=== PATIENT | male | born 1960 | race Caucasian/White ===

== ENCOUNTER 2019-11-06 08:00 | Outpatient (CLI) | payer BC, SELFPAY ==
[2019-11-06 08:17] LABS: Basophils Percent Auto 1.2 % (0.0-1.0); Eosinophils Absolute Auto 0.29 K/mm3 (0.02-0.50); Eosinophils Percent Auto 3.6 % (1.0-6.0); Hematocrit 57.2 % (40.0-54.0); Hemoglobin 18.4 g/dL (14.0-18.0); Immature Granulocyte Absolute 0.11 K/mm3 (0.00-0.00); Immature Granulocyte Percent A 1.4 % (0.0-0.0); Lymphocytes Absolute Auto 2.31 K/mm3 (1.10-4.50); Lymphocytes Percent Auto 28.6 % (18.0-42.0); Mean Corpuscular HGB Conc 32.2 g/dL (32.0-36.0); Mean Corpuscular Hemoglobin 28.5 pg (27.0-31.0); Mean Corpuscular Volume 88.5 fL (78.0-102.0); Mean Platelet Volume 8.9 fl (8.7-11.0); Monocytes Absolute Auto 1.04 K/mm3 (0.10-0.90); Monocytes Percent Auto 12.9 % (2.0-11.0); Neutrophils Absolute Auto 4.2 K/mm3 (1.7-7.2); Neutrophils Percent Auto 52.3 % (50.0-70.0); Platelet Count Result 228 K/mm3 (150-420); Red Blood Count 6.46 M/mm3 (4.70-6.10); Red Cell Distribution Width 14.5 % (11.6-14.4); White Blood Count 8.1 K/mm3 (4.8-10.8)
[2019-11-06 09:29] LABS: Alanine Aminotransferase 40 U/L (16-63); Albumin Level 3.6 g/dL (3.4-5.0); Alkaline Phosphatase 87 U/L (46-116); Aspartate Amino Transferase 20 U/L (15-37); Bilirubin Direct 0.2 mg/dL (0-0.2); Bilirubin,Total 0.8 mg/dL (0.00-1.00); Total Protein 6.6 g/dL (6.4-8.2)
[2019-11-10 13:51] LABS: Testosterone Total 388 ng/dL (250-1100)
[2019-11-11 03:55] LABS: Sex Hormone Binding Globulin 19 nmol/L (22-77)
== END 2019-11-06 08:01 | disposition home or self-care (01) ==
DX: E29.1 Testicular hypofunction (principal)
CPT/HCPCS: 36415; 80076; 84270; 84403; 85025

== ENCOUNTER 2020-01-03 07:35 | Outpatient (CLI) | payer BC, SELFPAY ==
[2020-01-03 07:51] LABS: Basophils Percent Auto 1.3 % (0.0-1.0); Eosinophils Absolute Auto 0.32 K/mm3 (0.02-0.50); Eosinophils Percent Auto 4.2 % (1.0-6.0); Hematocrit 53.3 % (40.0-54.0); Hemoglobin 17.6 g/dL (14.0-18.0); Immature Granulocyte Absolute 0.14 K/mm3 (0.00-0.00); Immature Granulocyte Percent A 1.8 % (0.0-0.0); Lymphocytes Absolute Auto 2.04 K/mm3 (1.10-4.50); Lymphocytes Percent Auto 26.5 % (18.0-42.0); Mean Corpuscular Hemoglobin 29.9 pg (27.0-31.0); Mean Corpuscular Volume 90.6 fL (78.0-102.0); Mean Platelet Volume 8.8 fl (8.7-11.0); Monocytes Absolute Auto 0.57 K/mm3 (0.10-0.90); Monocytes Percent Auto 7.4 % (2.0-11.0); Neutrophils Absolute Auto 4.5 K/mm3 (1.7-7.2); Neutrophils Percent Auto 58.8 % (50.0-70.0); Platelet Count Result 212 K/mm3 (150-420); Red Blood Count 5.88 M/mm3 (4.70-6.10); Red Cell Distribution Width 15.9 % (11.6-14.4); White Blood Count 7.7 K/mm3 (4.8-10.8)
[2020-01-03 08:39] LABS: Alanine Aminotransferase 38 U/L (16-63); Albumin Level 3.5 g/dL (3.4-5.0); Alkaline Phosphatase 81 U/L (46-116); Anion Gap 10.8 mmol/L (7-16); Aspartate Amino Transferase 19 U/L (15-37); Bilirubin,Total 0.8 mg/dL (0.00-1.00); Blood Urea Nitrogen 18 mg/dL (7-18); Calcium 8.7 mg/dL (8.5-10.1); Carbon Dioxide 31 mmol/L (21-32); Chloride 104 mmol/L (98-108); Estimated Glomerular Filt Rate 51; Glucose 150 mg/dL (70-99); Osmolality Calculated 298 mOsm/kg (285-295); Potassium 3.8 mmol/L (3.5-5.1); Prostate Specific Antigen < 0.1 ng/mL (< OR = 4.0); Sodium 142 mmol/L (136-145); Total Protein 6.4 g/dL (6.4-8.2)
[2020-01-09 16:39] LABS: CALR Exon 9 Mutation Not Detected (Not Detected); CSF3R Exon 14/17 Mutation Not Detected (Not Detected); JAK2 Exon 12 Mutation Not Detected (Not Detected); JAK2 V617F Mutation Not Detected (Not Detected); MPL Exon 10 Mutation Not Detected (Not Detected)
== END 2020-01-03 07:36 | disposition home or self-care (01) ==
LOC: CHSLAB 07:38
PROVIDERS: Visit Provider Internal Medicine Hematology & Oncology
DX: D75.1 Secondary polycythemia (principal); R97.20 Elevated prostate specific antigen [PSA]
CPT/HCPCS: 36415; 80053; 81219; 81270; 81402; 81403; 81479; 84153; 85025; G0103

== ENCOUNTER 2020-01-18 07:23 | Outpatient (CLI) | payer BC, SELFPAY ==
[2020-01-18 07:39] LABS: Base Excess ABG -2.6 mmol/L (0-2); HCO3 ABG 21.1 mmol/L (23-29); Oxygen Content ABG 23.7 %vol (16.0-22.0); Oxygen Saturation ABG 95.3 % (95-97); Oxyhemoglobin 94.8 % (94-100); PCO2 ABG 34.2 mmHg (35-45); PO2 ABG 76.8 mmHg (80-90); Total Hemoglobin 17.8 g/dL; pH ABG 7.41 (7.35-7.45)
[2020-01-18 07:41] LABS: Device ROOM AIR; Modified Allen's Test Pass; Site Drawn LEFT RADIAL
== END 2020-01-18 07:24 | disposition home or self-care (01) ==
PROVIDERS: Visit Provider Internal Medicine Hematology & Oncology
DX: D75.1 Secondary polycythemia (principal)
CPT/HCPCS: 36600; 82805

== ENCOUNTER 2020-02-14 13:57 | Outpatient (CLI) | payer BC, SELFPAY ==
--- NOTE | 2020-02-14 14:50 | PC.NURSE ---
1400 Patient here for therapeutic phlebotomy for polycythemia. Patient has these in the past and didn't need any education at this time. # 18 g needle insertion - phlebotomy performed. Patient tolerated it well. {see written forms for phlebotomy.} Safe exit of hospital. Patient will return next for #2 of 4 weekly.
== END 2020-02-14 13:58 | disposition home or self-care (01) ==
PROVIDERS: Visit Provider Internal Medicine Hematology & Oncology
DX: D75.1 Secondary polycythemia (principal)
CPT/HCPCS: 99195

== ENCOUNTER 2020-02-21 13:53 | Outpatient (CLI) | payer BC, SELFPAY ==
[2020-02-21 14:06] LABS: Basophils Percent Auto 1.1 % (0.0-1.0); Eosinophils Absolute Auto 0.27 K/mm3 (0.02-0.50); Eosinophils Percent Auto 2.9 % (1.0-6.0); Hematocrit 55.1 % (40.0-54.0); Hemoglobin 18.1 g/dL (14.0-18.0); Immature Granulocyte Absolute 0.06 K/mm3 (0.00-0.00); Immature Granulocyte Percent A 0.6 % (0.0-0.0); Lymphocytes Absolute Auto 2.55 K/mm3 (1.10-4.50); Lymphocytes Percent Auto 27.1 % (18.0-42.0); Mean Corpuscular HGB Conc 32.8 g/dL (32.0-36.0); Mean Corpuscular Hemoglobin 29.9 pg (27.0-31.0); Mean Corpuscular Volume 91.1 fL (78.0-102.0); Mean Platelet Volume 8.8 fl (8.7-11.0); Monocytes Absolute Auto 0.95 K/mm3 (0.10-0.90); Monocytes Percent Auto 10.1 % (2.0-11.0); Neutrophils Absolute Auto 5.5 K/mm3 (1.7-7.2); Neutrophils Percent Auto 58.2 % (50.0-70.0); Platelet Count Result 273 K/mm3 (150-420); Red Blood Count 6.05 M/mm3 (4.70-6.10); Red Cell Distribution Width 14.5 % (11.6-14.4); White Blood Count 9.4 K/mm3 (4.8-10.8)
--- NOTE | 2020-03-04 08:16 | PC.NURSE ---
Unit charge is 1 unit charge of 660 is incorrect
== END 2020-02-21 13:54 | disposition home or self-care (01) ==
PROVIDERS: Visit Provider Internal Medicine Hematology & Oncology
DX: D75.1 Secondary polycythemia (principal)
CPT/HCPCS: 36415; 85025; 99195

== ENCOUNTER 2020-02-28 13:57 | Outpatient (CLI) | payer BC, SELFPAY ==
[2020-02-28 14:17] LABS: Hematocrit 50.7 % (40.0-54.0); Hemoglobin 16.6 g/dL (14.0-18.0)
--- NOTE | 2020-02-28 14:42 | PC.NURSE ---
1400 Patient here for therapeutic phlebotomy. No concerns. Patient glad hemoglobin went down. Phlebotomy completed. SEE WRITTEN CHARTING. Tolerated it well. Safe exit of hospital.
== END 2020-02-28 13:58 | disposition home or self-care (01) ==
PROVIDERS: Visit Provider Internal Medicine Hematology & Oncology
DX: D75.1 Secondary polycythemia (principal)
CPT/HCPCS: 36415; 85014; 85018; 99195

== ENCOUNTER 2020-03-06 14:00 | Outpatient (CLI) | payer BC, SELFPAY ==
[2020-03-06 14:11] LABS: Hematocrit 51.3 % (40.0-54.0); Hemoglobin 16.8 g/dL (14.0-18.0)
--- NOTE | 2020-03-06 15:09 | PC.NURSE ---
1410 Here for phlebotomy. H/H is 16.8/51.3. pre vs 98.1-84-16-123/80-95% on ra. #18 started in r ac. immediate return of blood. 248g. voices no c/o. vs post 97.6-84-18-122/74-94%. iv removed and site looks good and clean. no redness noted. left on his own accord.-----marcia jenkins
== END 2020-03-06 14:01 | disposition home or self-care (01) ==
LOC: CHSTREATRM 14:02
PROVIDERS: Visit Provider Internal Medicine Hematology & Oncology
DX: D75.1 Secondary polycythemia (principal)
CPT/HCPCS: 36415; 85014; 85018; 99195

== ENCOUNTER 2021-03-27 07:38 | Outpatient (CLI) | payer BC, SELFPAY ==
[2021-03-27 07:54] LABS: Hematocrit 60.6 % (40.0-54.0); Hemoglobin 19.6 g/dL (14.0-18.0)
[2021-03-27 08:56] LABS: Prostate Specific Antigen < 0.1 ng/mL (< OR = 4.0)
[2021-04-01 01:15] LABS: Testosterone Total 909 ng/dL (250-1100)
== END 2021-03-27 07:39 | disposition home or self-care (01) ==
LOC: CHSLAB 07:43
PROVIDERS: PCP Family Medicine
DX: C61 Malignant neoplasm of prostate (principal); E29.1 Testicular hypofunction
CPT/HCPCS: 36415; 84153; 84403; 85014; 85018

== ENCOUNTER 2021-07-09 07:42 | Outpatient (CLI) | payer BC, SELFPAY ==
[2021-07-09 08:10] LABS: Hemoglobin 18.1 g/dL (14.0-18.0)
== END 2021-07-09 07:43 | disposition home or self-care (01) ==
LOC: CHSLAB 07:44
PROVIDERS: PCP Family Medicine
DX: E29.1 Testicular hypofunction (principal)
CPT/HCPCS: 36415; 85014; 85018

== ENCOUNTER 2022-06-11 07:55 | Outpatient (CLI) | payer BC, SELFPAY ==
[2022-06-11 08:11] LABS: Hemoglobin 17.7 g/dL (14.0-18.0)
[2022-06-11 09:23] LABS: Prostate Specific Antigen < 0.1 ng/mL (< OR = 4.0)
[2022-06-16 10:06] LABS: Testosterone Total 377 ng/dL (250-1100)
== END 2022-06-11 07:56 | disposition home or self-care (01) ==
LOC: CHSLAB 07:58
DX: R79.89 Other specified abnormal findings of blood chemistry (principal)
CPT/HCPCS: 36415; 84153; 84403; 85014; 85018; G0103

== ENCOUNTER 2022-08-25 07:40 | Outpatient (CLI) | payer BC, SELFPAY ==
[2022-08-25 08:04] LABS: Hematocrit 54.3 % (40.0-54.0); Hemoglobin 17.4 g/dL (14.0-18.0)
[2022-08-30 13:11] LABS: Testosterone Total 479 ng/dL (250-1100)
== END 2022-08-25 07:41 | disposition home or self-care (01) ==
LOC: CHSLAB 07:45
DX: E29.1 Testicular hypofunction (principal)
CPT/HCPCS: 36415; 84403; 85014; 85018

== ENCOUNTER 2022-12-24 08:14 | Outpatient (CLI) | payer BC, SELFPAY ==
[2022-12-24 08:31] LABS: Hematocrit 57.6 % (40.0-54.0); Hemoglobin 18.4 g/dL (14.0-18.0)
[2022-12-28 13:10] LABS: Testosterone Total 578 ng/dL (250-1100)
== END 2022-12-24 08:15 | disposition home or self-care (01) ==
LOC: CHSLAB 08:17
DX: E29.1 Testicular hypofunction (principal)
CPT/HCPCS: 36415; 84402; 84403; 85014; 85018